=== PATIENT | female | born 1980 ===

== ENCOUNTER → 2018-11-15 21:13 | Outpatient (REF) | payer OTHER, SELFPAY ==
[2018-11-15 21:51] LABS: Add Manual Diff / Slide Review NO; Basophils Absolute Auto 0 /uL (0-100); Basophils Percent Auto 0.4 % (0-2); Eosinophils Absolute Auto 200 /uL (0-450); Eosinophils Percent Auto 1.8 % (2-4); Hematocrit 40.7 % (36-46); Hemoglobin 13.7 g/dL (12.0-16.0); Lymphocytes Absolute Auto 4300 /uL (1100-4500); Lymphocytes Percent Auto 33.6 % (25-40); Mean Corpuscular HGB Conc 33.6 % (30-36); Mean Corpuscular Hemoglobin 31.3 PG (26-34); Mean Corpuscular Volume 93.2 fL (80-100); Monocytes Absolute Auto 600 /uL (0-900); Neutrophils Absolute Auto 7600 /uL (1500-7000); Neutrophils Percent Auto 59.2 % (50-75); Platelet Count 347 X10^3/uL (150-400); Red Blood Cell Count 4.36 X10^6/uL (4.0-5.2); Red Cell Distribution Width 13.6 % (11.6-14.8); White Blood Cell Count 12.8 X10^3/uL (4.5-11.0)
[2018-11-15 22:01] LABS: BUN Creatinine Ratio 22.9 (6-22); Blood Urea Nitrogen 16 mg/dL (7-17); Calcium 9.6 mg/dL (8.4-10.2); Carbon Dioxide 25 mmol/L (22-32); Chloride 101 mmol/L (98-107); Cholesterol 245 mg/dL (140-199); Estimated Glomerular Filt Rate > 60.0 mL/min (>60); Glucose 88 mg/dL (70-100); HDL Cholesterol 90 mg/dL (40-60); HEMOLYSIS < 15 (0-50); LDL Cholesterol Calculated 132 mg/dL (<100); Potassium 4.5 mmol/L (3.4-5.1); Sodium 137 mmol/L (137-145); Triglycerides 115 mg/dL (35-150)
[2018-11-16 04:34] LABS: Free T3, Triiodothyronine Free 3.73 pg/mL (2.77-5.27)
[2018-11-16 04:47] LABS: Thyroid Stimulating Hormone 3.78 uIU/mL (0.47-4.68)
== END ==
LOC: LAB 21:13
PROVIDERS: Visit Provider Naturopath
DX: E03.9 Hypothyroidism, unspecified (principal); E78.00 Pure hypercholesterolemia, unspecified; Z00.00 Encounter for general adult medical examination without abnormal findings
CPT/HCPCS: 36415; 80048; 80061; 84436; 84439; 84443; 84481; 85025

== ENCOUNTER → 2018-11-29 21:27 | Outpatient (REF) | payer OTHER, SELFPAY ==
[2018-11-29 22:44] LABS: Progesterone, Total 1.71 ng/mL
[2018-12-03 17:27] LABS: Estrogen 125.1 pg/mL
== END ==
LOC: LAB 21:27
PROVIDERS: Visit Provider Naturopath
DX: N94.6 Dysmenorrhea, unspecified (principal)
CPT/HCPCS: 36415; 82672; 84144